=== PATIENT | male | born 2000 | race Caucasian/White ===

== ENCOUNTER 2019-09-23 19:32 | Emergency (ER) | payer BC ==
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
[2019-09-23] MEDS ORDERED: Ondansetron 4 MG/2 ML SDV IVPUSH ONE (20:42)
[2019-09-23] MEDS ORDERED: Sodium Chloride 0.9% 10 ML Syringe FLUSH PRN (20:42)
[2019-09-23] MEDS ORDERED: Ketorolac 30 MG/ML SDV IVPUSH ONE (20:42)
[2019-09-23] MEDS ORDERED: Ondansetron 4 MG Tab.DIS PO ONE (21:52)
[2019-09-23] MEDS ORDERED: Ibuprofen 600 MG Tab PO ONE (21:53)
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
[2019-09-23] MEDS ORDERED: HYDROmorphone 0.5 MG/0.5 ML Syringe IVPUSH ONE (22:01)
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
== END 2019-09-24 00:16 | disposition home or self-care (01) ==
LOC: JP.ED 19:32
DX: S06.0X9A Concussion with loss of consciousness of unspecified duration, initial encounter (principal); S02.31XA Fracture of orbital floor, right side, initial encounter for closed fracture; S02.40CA Maxillary fracture, right side, initial encounter for closed fracture; R04.0 Epistaxis; W50.0XXA Accidental hit or strike by another person, initial encounter
CPT/HCPCS: 30903; 70450; 70486; 96374; 96375; 99283; J1170; J1885; J2405; 30901; 99284